=== PATIENT | male | born 1940 | race American Indian/Alaskan Native ===

== ENCOUNTER 2017-04-30 10:34 | Day surgery (SDC) | payer MEDICARE ==
--- NOTE | 2017-04-28 11:23 | Anesthesia Consultation ---
Anesthesia Consult and Med Hx Date of service: 04/28/17 - Airway Anesthetic Teeth Evaluation: Good ROM Head & Neck: Adequate Mental/Hyoid Distance: Adequate Mallampati Class: Class II Intubation Access Assessment: Probably Good - Pulmonary Exam CTA: Yes - Cardiac Exam Cardiac Exam: RRR - Pre-Operative Health Status ASA Pre-Surgery Classification: ASA3 Proposed Anesthetic Plan: General - Pulmonary Hx Smoking: No Hx Sleep Apnea: No (NICK PRE SCREEN HIGH RISK) - Cardiovascular System Hx Hypertension: Yes (X 40 YRS) Hx Heart Attack/AMI: Yes (MS X 3- LAST ONE 1994) - Central Nervous System Hx Back Pain: Yes - Endocrine Hx Non-Insulin Dependent Diabetes: No - Other Systems Hx Cancer: No
[2017-04-28 12:28] LABS: Basophils % (Auto) 1.3 % (0.0-1.8); Eosinophils % (Auto) 1.7 % (0.0-4.3); Hemoglobin 14.8 gm/dl (11.8-15.2); Mean Corpuscular HGB Conc 33 % (32-34); Mean Corpuscular Hemoglobin 30 pg (28-32); Mean Corpuscular Volume 90 fl (84-94); Platelet Count 229 K/mm3 (140-440); Red Blood Count 4.98 M/mm3 (3.65-5.03); Red Cell Distribution Width 16.1 % (13.2-15.2); White Blood Count 5.3 K/mm3 (4.5-11.0)
[2017-04-28 12:42] LABS: INR 0.96 (0.87-1.13); Partial Thromboplastin Time 28.2 Sec. (24.2-36.6)
[2017-04-28 12:58] LABS: Alanine Aminotransferase 18 units/L (7-56); Albumin 3.9 g/dL (3.9-5); Albumin/Globulin Ratio 1.3 %; Alkaline Phosphatase 54 units/L (35-129); Anion Gap 16 mmol/L; BUN/Creatinine Ratio 9; Blood Urea Nitrogen 9 mg/dL (9-20); Calcium 8.9 mg/dL (8.4-10.2); Carbon Dioxide 25 mmol/L (22-30); Glucose 98 mg/dL (75-100); Potassium 4.5 mmol/L (3.6-5.0); Sodium 140 mmol/L (137-145)
[~2017-04-30 10:34] MED LIST: NACL 0.9% 1000 ML 1,000 ML IV SCH; PEPCID PO NR
[2017-04-30] MEDS ORDERED: NACL BACTERIOSTATIC INFILTRATI ONE (10:49)
[2017-04-30] MEDS ORDERED: GARAMYCIN 120 MG in NACL 0.9% 100 ML IV SCH (12:30)
[2017-04-30] MEDS ORDERED: GARAMYCIN/NS 120MG/100ML 120 MG/100 ML BAG IV NR (13:00)
[2017-04-30] MEDS ORDERED: ANCEF/STERILE WATER 2 GM/20 ML 2 GM/20 ML SYRINGE IV NR (13:00)
[2017-04-30] MEDS ORDERED: XYLOCAINE MPF 2% ONE (13:11)
[2017-04-30] MEDS ORDERED: SUBLIMAZE ONE (13:11)
[2017-04-30] MEDS ORDERED: DIPRIVAN 10 MG/ML IV ONE (13:11)
[2017-04-30] MEDS ORDERED: WATER FOR IRRIG STERILE IR ONE (13:16)
[2017-04-30] MEDS ORDERED: ePHEDrine SULFATE ONE (13:36)
[2017-04-30] MEDS ORDERED: DECADRON ONE (13:40)
[2017-04-30] MEDS ORDERED: ZOFRAN ONE (13:40)
--- NOTE | 2017-04-30 14:03 | Post Operative Note ---
Date of procedure: 04/30/17 Pre-op diagnosis: inc psa Post-op diagnosis: same Findings: normal pus Procedure: flex cysto pus biopsies with us Anesthesia: GETA Surgeon: CHRISTOPHER MONGE Estimated blood loss: minimal Pathology: list (prostate) Specimen disposition: to lab Condition: stable Disposition: PACU
--- NOTE | 2017-04-30 14:04 | Discharge Summary ---
Short Stay Discharge Plan Activity: other (no straining ) Weight Bearing Status: Full Weight Bearing Diet: low fat, low cholesterol, low salt Special Instructions: other (inc fluids ) Follow up with: PRIMARY CARE, [Primary Care Provider] - 7 Days CHRISTOPHER MONGE MD [Staff Physician] - 7 Days
--- NOTE | 2017-04-30 16:10 | Ultrasound Report ---
ULTRASOUND GUIDANCE INTRAOPERATIVE - TRANSRECTAL: HISTORY: Prostate biopsy guidance. Elevated PSA. COMPARISON: None similar at this institution. FINDINGS: Transrectal ultrasound guidance provided for Dr. Reece for prostate biopsy. Prostate estimated at 26 cc. CONCLUSION: Prostate biopsy performed under ultrasound guidance. Thank you for the opportunity to participate in this patient's care.
[2017-04-30 17:22] VITALS: BP 116/75
--- NOTE | 2017-04-30 17:31 | Operative Report ---
PREOPERATIVE DIAGNOSIS: Elevated PSA and PCA3. POSTOPERATIVE DIAGNOSIS: Elevated PSA and PCA3, rule out prostate cancer. PROCEDURE: Flexible cystoscopy, transrectal biopsies of the prostate with ultrasound guidance. SURGEON: Laith Reece MD ANESTHESIA: General. FINDINGS: This is a gentleman with elevated PSA. All the options were given. He had a biopsy in [place] where he got septic. He wanted to be in the hospital. He was loaded up with antibiotics here. DESCRIPTION OF PROCEDURE: The patient brought to the operating room and placed on the operating table. Following induction of anesthesia, placed in lithotomy position, prepped and draped in usual sterile fashion. Flexible cystoscopy showed normal urethra, minimal bilobar hypertrophy. The transrectal ultrasound guidance, measured the prostate approximately 26 grams. There were no hypoechoic areas. Biopsies were obtained, 6 on the right, 6 on the left. The patient tolerated the procedure well. No significant complications, brought to recovery in stable condition. JOB# [id number] LIBBY/RUBEN
== END 2017-04-30 16:05 | disposition home or self-care (01) ==
LOC: OR 10:34
PROVIDERS: ATTEND Urology
DX: C61 Malignant neoplasm of prostate (principal); N41.1 Chronic prostatitis; N42.89 Other specified disorders of prostate; R97.20 Elevated prostate specific antigen [PSA]; I25.2 Old myocardial infarction; I10 Essential (primary) hypertension; E78.00 Pure hypercholesterolemia, unspecified; Z80.42 Family history of malignant neoplasm of prostate; Z79.899 Other long term (current) drug therapy; Z79.82 Long term (current) use of aspirin
CPT/HCPCS: 36415; 55700; 76998; 80053; 85025; 85610; 85730; 88305; 93005; 93010; A4217; J0690; J1100; J1580; J2405; J2704; J3010; J7030

== ENCOUNTER 2017-09-22 11:04 | Outpatient (CLI) | payer MEDICARE ==
--- NOTE | 2017-09-23 00:26 | XRay Report ---
FINAL REPORT PROCEDURE: XR SPINE LUMBOSACRAL 2-3V TECHNIQUE: Lumbar spine radiographs, including AP, lateral, and lumbosacral spot views. CPT 20539 HISTORY: LOW BACK PAIN COMPARISON: No prior studies are available for comparison. FINDINGS: Alignment: There is a mild right convex mid lumbar curvature.. Vertebral body heights/Disk spaces: There is slight endplate concavity identified in the superior endplates of the L1-L2 and L3 vertebral levels. No compression fractures are noted. There is moderate narrowing of the disc spaces at the L2-3, L3-4, L4-5 and L5-S1 levels. Moderate spur formation off the vertebral bodies is identified at all levels.. Fracture(s): No evident acute fracture. The patient has had previous surgery with what appears to represent removal of a portion of the posterior elements at the L4 and L5 vertebral levels.. Facets: Mild facet hypertrophy identified at all levels.. Bone mineralization: Mild generalized osteopenia. IMPRESSION: There is no evidence of an acute fracture dislocation. Moderate lumbar spondylosis and degenerative disc changes as described. Mild generalized osteopenia.
== END 2017-09-22 11:05 | disposition home or self-care (01) ==
LOC: SPVIMAG 11:04
PROVIDERS: ATTEND Physical Medicine & Rehabilitation
DX: M47.896 Other spondylosis, lumbar region (principal); M85.88 Other specified disorders of bone density and structure, other site; M43.8X6 Other specified deforming dorsopathies, lumbar region; Z98.890 Other specified postprocedural states
CPT/HCPCS: 72100

== ENCOUNTER 2021-03-02 06:04 | Inpatient (IN) | payer MEDICARE ==
[2021-02-28 13:29] LABS: Hemoglobin 14.8 gm/dl (11.8-15.2); Mean Corpuscular HGB Conc 34 % (32-34); Mean Corpuscular Volume 93 fl (84-94); Platelet Count 258 K/mm3 (140-440); Red Blood Count 4.73 M/mm3 (3.65-5.03); Red Cell Distribution Width 15.4 % (13.2-15.2)
[2021-02-28 13:40] LABS: INR 0.92 (0.87-1.13)
[2021-02-28 13:41] LABS: Partial Thromboplastin Time 24.7 Sec. (24.2-36.6)
[2021-02-28 13:50] LABS: BUN/Creatinine Ratio 18; Blood Urea Nitrogen 18 mg/dL (9-20); Calcium 9.3 mg/dL (8.4-10.2); Hemolysis Index 5
--- NOTE | 2021-02-28 15:27 | Anesthesia Consultation ---
Anesthesia Consult and Med Hx Date of service: 03/02/21 - Airway Anesthetic Teeth Evaluation: Dentures ROM Head & Neck: Adequate Mental/Hyoid Distance: Adequate Mallampati Class: Class II Intubation Access Assessment: Probably Good - Pulmonary Exam CTA: Yes - Cardiac Exam Cardiac Exam: RRR - Pre-Operative Health Status ASA Pre-Surgery Classification: ASA3 Proposed Anesthetic Plan: General - Pulmonary Hx Smoking: Yes (quit 1989) Hx Respiratory Symptoms: No Hx Sleep Apnea: No - Cardiovascular System Hx Hypertension: Yes Hx Coronary Artery Disease: Yes Hx Heart Attack/AMI: Yes () Hx Percutaneous Transluminal Coronary Angioplasty (PTCA): No Hx Cardia Arrhythmia: No (sinus bradycardia at baseline) Hx Pacemaker: No Hx Internal Defibrillator: No - Central Nervous System CVA: No Hx Back Pain: Yes - Endocrine Hx Renal Disease: No Hx Liver Disease: No Hx Insulin Dependent Diabetes: No Hx Non-Insulin Dependent Diabetes: No Hx Thyroid Disease: No - Hematic Hx Anemia: No - Other Systems Hx Obesity: No - Additional Comments Anesthesia Medical History Comments: No hx anesthetic complications. Consented for GA w/ pre-induction a-line. Preop cardiology eval reviewed: normal EF and negative ST recently.
[2021-03-02] MEDS ORDERED: SODIUM CHLORIDE 0.9% 1000 ML 1,000 ML IV SCH (07:00)
[2021-03-02] MEDS ORDERED: propofoL 200 MG/20 ML VIAL IV ONE (07:33)
[2021-03-02] MEDS ORDERED: VASOPRESSIN 20 UNIT/1 ML INJ ONE (07:34)
--- NOTE | 2021-03-02 07:44 | Short Stay Summary ---
Short Stay Documentation Date of service: 03/02/21 - History Principal diagnosis: Enlarging abdominal aortic aneurysm Past Medical History: CAD, cancer (Prostate), hypertension, hyperlipidemia Social history: no significant social history, smoking (Former) - Allergies and Medications Current Medications: Allergies No Known Allergies Allergy (Verified 02/27/21 16:25) Home Medications Medication Instructions Recorded Confirmed Last Taken Type Aspirin [Lo-Dose Aspirin EC] 81 mg PO DAILY 04/23/17 03/02/21 2 Days Ago History ~02/28/21 81 mg amLODIPine/ATORVASTATIN 1 tab PO DAILY 04/23/17 03/02/21 03/02/21 04:00 History [Amlodipine-Atorvast 10-10 mg] 10 mg oxyCODONE /ACETAMINOPHEN [Percocet 1 tab PO Q6HR PRN 04/23/17 03/02/21 03/02/21 04:00 History 5/325 mg] 1 tab Active Medications Sodium Chloride (Nacl 0.9% 1000 Ml) 1,000 mls @ 42 mls/hr IV DIRECT RENZO - Physical exam General appearance: no acute distress Integumentary: no rash, no growths HEENT: Atraumatic Lungs: Normal air movement Breasts: deferred Heart: Regular rate Gastrointestinal: normal Male Genitourinary: deferred Rectal Exam: deferred Neurological: Normal gait, Normal speech - Brief post op/procedure progress note Date of procedure: 03/02/21 Pre-op diagnosis: Enlarging abdominal aortic aneurysm Post-op diagnosis: same Procedure: Endovascular repair of abdominal aortic aneurysm Anesthesia: local Surgeon: ZENON AVINA Grinding Machine Operator: FRANCISCA MEJIA Estimated blood loss: minimal Pathology: none Condition: stable - Disposition Condition at discharge: Good Disposition: 02 SHORT TERM HOSPITAL Short Stay Discharge Plan Wound: keep clean and dry, per your surgeon's advice Follow up with: DIDI CARTER MD [Primary Care Provider] - 7 Days FRANCISCA MEJIA MD [Staff Physician] - 7 Days
[2021-03-02] MEDS ORDERED: MIDAZOLAM 2 MG/2 ML INJ ONE (07:59)
[2021-03-02] MEDS ORDERED: ePHEDrine SULFATE 50 MG/1 ML INJ ONE (08:07)
[2021-03-02] MEDS ORDERED: HYDROmorphone 1 MG/1 ML INJ ONE (08:07)
[2021-03-02] MEDS ORDERED: HEPARIN/NS 5000 UNIT/500ML 1,500 ML IR ONE ×2 (08:11→10:07)
[2021-03-02] MEDS ORDERED: HEPARIN 10,000 UNITS/10 ML VIAL ONE (08:11)
[2021-03-02] MEDS ORDERED: LIDOCAINE (2%) 20 MG/1 ML VIAL 20 ML MDV INFILTRATI ONE ×2 (08:12→09:39)
[2021-03-02] MEDS ORDERED: LIDOCAINE MPF (2%) 20 MG/1 ML VIAL 5 ML ONE (09:00)
--- NOTE | 2021-03-02 09:20 | Anesthesia Day of Surgery ---
Anesthesia Day of Surgery - Day of Surgery Patient Examined: Yes Patient H&P Reviewed: Yes Patient is NPO: Yes
[2021-03-02] MEDS ORDERED: ceFAZolin/Water 2 GM/20 ML 2 GM/20 ML SYRINGE IV ONE (09:22)
[2021-03-02] MEDS ORDERED: ONDANSETRON 4 MG/2 ML INJ IV PRN ×2 (10:00→11:49)
[2021-03-02] MEDS ORDERED: HYDROmorphone 1 MG/1 ML INJ IV PRN ×2 (10:00→11:49)
[2021-03-02] MEDS ORDERED: HEPARIN/NS 5000 UNIT/500ML 500 ML IR ONE (10:10)
[2021-03-02] MEDS ORDERED: NEOSTIGMINE 10MG/10 ML INJ MDV ONE (11:45)
[2021-03-02] MEDS ORDERED: ONDANSETRON 4 MG/2 ML INJ ONE (11:45)
[2021-03-02] MEDS ORDERED: GLYCOPYRROLATE 0.4 MG/2 ML INJ ONE (11:45)
[2021-03-02] MEDS ORDERED: ROCURONIUM 50 MG/5 ML INJ IV ONE (11:45)
[2021-03-02] MEDS ORDERED: oxyCODONE /ACETAMINOPHEN 5-325MG TAB PO PRN (11:49)
[2021-03-02] MEDS ORDERED: ALBUTEROL 2.5 MG/3 ML NEBU IH PRN (11:49)
[2021-03-02] MEDS ORDERED: ACETAMINOPHEN 325 MG TAB PO PRN (11:49)
--- NOTE | 2021-03-02 11:49 | History and Physical Report ---
History of Present Illness Chief complaint: I have an aneurysm History of present illness: 80 YO Male with HTN, [place], LDD, Nicotine Dependence, CAD, AAA admitted directly at the request of Dr. White. Patient found to have abdominal aortic aneurysm in need of repair. Patient taken electively to the operating room for surgical repair. Patient denies fever, chills, chest pain, palpitation, productive cough, skin rash, recent ill contact, non-smoker to [place] [id number]. No prior admission for review. All medication listed at time admission has been reconciled. Advanced care planning conducted. Past History Past Medical History: CAD, cancer (Prostate), hypertension, hyperlipidemia Social history: , smoking (Former) Family history: hypertension Medications and Allergies Allergies Allergy/AdvReac Type Severity Reaction Status Date / Time No Known Allergies Allergy Verified 02/27/21 16:25 Home Medications Medication Instructions Recorded Confirmed Last Taken Type Aspirin [Lo-Dose Aspirin EC] 81 mg PO DAILY 04/23/17 03/02/21 2 Days Ago History ~02/28/21 81 mg amLODIPine/ATORVASTATIN 1 tab PO DAILY 04/23/17 03/02/21 03/02/21 04:00 History [Amlodipine-Atorvast 10-10 mg] 10 mg oxyCODONE /ACETAMINOPHEN [Percocet 1 tab PO Q6HR PRN 04/23/17 03/02/21 03/02/21 04:00 History 5/325 mg] 1 tab Active Meds: Active Medications Clopidogrel Bisulfate (Clopidogrel 75 Mg Tab) 75 mg PO QDAY RENZO Hydromorphone HCl (Hydromorphone 1 Mg/1 Ml Inj) 0.5 mg IV Q10MIN PRN PRN Reason: Pain , Severe (7-10) Stop: 03/02/21 17:00 Sodium Chloride (Nacl 0.9% 1000 Ml) 1,000 mls @ 42 mls/hr IV DIRECT RENZO Ondansetron HCl (Ondansetron 4 Mg/2 Ml Inj) 4 mg IV ONCE PRN PRN Reason: Nausea And Vomiting Stop: 03/02/21 17:00 Review of Systems Constitutional: no weight loss, no weight gain, no fever, no chills Ears, nose, mouth and throat: no ear pain, no tinnitis, no nose pain Cardiovascular: no chest pain, no orthopnea, no palpitations, no rapid/irregular heart beat, no syncope, no lightheadedness Respiratory: no cough, no cough with sputum, no excessive sputum, no hemoptysis, no dyspnea on exertion Gastrointestinal: no abdominal pain, no vomiting, no change in bowel habits, no hematemesis Genitourinary Male: no dysuria, no urinary frequency, no nocturia Rectal: no pain Musculoskeletal: no neck pain, no shooting arm pain, no arm numbness/tingling Integumentary: no rash, no pruritis, no redness, no sores, no wounds Neurological: no head injury, no transient paralysis, no paralysis, no weakness Psychiatric: no anxiety, no change in sleep habits, no sleep disturbances, no insomnia, no hypersomnia Endocrine: no cold intolerance, no heat intolerance, no polydipsia, no polyuria, no nocturia, no flushing Hematologic/Lymphatic: no easy bruising, no lymphedema Allergic/Immunologic: no urticaria, no wheezing, no anaphylaxis, no angioedema Exam - Constitutional Vitals: Temp Pulse Resp BP Pulse Ox 98.0 F 59 L 18 139/74 99 03/02/21 07:26 03/02/21 07:26 03/02/21 07:26 03/02/21 07:26 03/02/21 07:56 General appearance: Present: no acute distress - EENT Eyes: Present: PERRL ENT: hearing intact, clear oral mucosa - Neck Neck: Present: supple, normal ROM - Respiratory Respiratory effort: normal Respiratory: bilateral: CTA - Cardiovascular Heart Sounds: Present: S1 & S2. Absent: rub, click - Extremities Extremities: pulses symmetrical, No edema Peripheral Pulses: within normal limits - Abdominal General gastrointestinal: Present: soft, non-tender, non-distended, normal bowel sounds Male genitourinary: Present: normal - Integumentary Integumentary: Present: clear, warm, dry - Musculoskeletal Musculoskeletal: gait normal, strength equal bilaterally - Psychiatric Psychiatric: appropriate mood/affect, intact judgment & insight - Neurologic Neurologic: CNII-XII intact, moves all extremities Results - Labs CBC & Chem 7: 02/28/21 06:52 02/28/21 06:52 Labs: Abnormal lab results 02/28/21 03/02/21 Range/Units 06:52 07:05 RDW 15.4 H (13.2-15.2) % Crossmatch See Detail Assessment and Plan - Patient Problems (1) Abdominal aortic aneurysm Current Visit: Yes Status: Acute Qualifiers: Presence of rupture: without rupture Qualified Code(s): I71.4 - Abdominal aortic aneurysm, without rupture Plan to address problem: Surgical intervention as per vascular surgery team, admit to ICU, supportive care, further care as per vascular surgery team. (2) Nicotine dependence Current Visit: Yes Status: Acute Qualifiers: Nicotine product type: cigarettes Substance use status: in withdrawal Qualified Code(s): F17.213 - Nicotine dependence, cigarettes, with withdrawal Plan to address problem: Smoking cessation counseling, supportive care, (3) Hypertension Current Visit: Yes Status: Acute Qualifiers: Hypertension type: primary hypertension Qualified Code(s): I10 - Essential (primary) hypertension Plan to address problem: Monitor blood pressure every shift, continue medical management (4) DVT prophylaxis Current Visit: Yes Status: Acute Plan to address problem: SCD to bilateral lower extremities while in bed (5) Advance care planning Current Visit: Yes Status: Acute Plan to address problem: Disease education conducted, care plan discussed, diagnoses discussed, prognosis discussed, patient is full code, patient knowledges understanding agreement with care plan, +30 minutes.
[2021-03-02] MEDS: CLOPIDOGREL 75 MG TAB PO SCH (12:53)
--- NOTE | 2021-03-02 14:19 | Operative Report ---
Operative Report Operative Report: Date of Procedure: 03/02/2021 Pre-operative Diagnosis: Abdominal Aortic Aneurysm without Evidence of Rupture Post-operative Diagnosis: Same Procedure(s): 1. Ultrasound-Guided Access Right Common Femoral Artery 2. Ultrasound-Guided Access Left Common Femoral Artery 3. Catheter in Aorta 4. Diagnostic Aortogram (No Previous Films for Comparison) 5. Percutaneous Endovascular Repair of Abdominal Aortic Aneurysm with: 1. Endologix AFX 22-60/13-40 Main Body 2. Endologix Ovation iX 22 x 45 mm Proximal Extension 6. Radiologic Supervision with Interpretation Surgeon: David White MD Medical Records Specialist: Ignacio Lopez MD Anesthesia: General Endotracheal Anesthesia EBL: Minimal Counts: Correct Complications: None Condition: Stable Specimen: None Indication: The patient is an 80-year-old male with a history of an abdominal aortic aneurysm that rapidly expanded over a 6-month period. Given the rapid expansion he is in need of repair of the aneurysm to prevent rupture. He was worked up and found to be a suitable candidate for endovascular repair. He was given the risk, benefits, and alternative procedures and consented to the procedure. Angiographic Findings: The diagnostic aortogram revealed an infrarenal abdominal aortic aneurysm without evidence of a rupture. The endograft was placed at the bifurcation with the proximal extension place just distal to the renal arteries. The final angiogram revealed brisk flow of contrast through the endograft with no evidence of endoleak's. Description of Procedure: The patient was brought to the Solutions Analyst and laid in supine position. After timeout was performed general endotracheal anesthesia was achieved and the patient was then prepped and draped in normal sterile fashion. Ultrasound was used to identify the right common femoral artery and confirm patency. Once patency was confirmed an 11 blade was used to make a small stab incision and then a curved hemostat was used to bluntly dissect down to the anterior surface of the right common femoral artery under ultrasound guidance. A 21-gauge micropuncture needle was used with ultrasound guidance in the right common femoral artery and a 0.018 micropuncture wire was advanced to the artery. The needle was removed and a micropuncture sheath was placed by Seldinger technique. The inner dilator and wire were removed and a 0.035 Bentson wire was advanced to the aorta. The micropuncture sheath was exchanged for a 6 Guinean sheath by Seldinger technique. A preclose technique was performed, on the right femoral arteriotomy after removing the 6 Guinean sheath, by deploying a Pro-[place] Closure Device at the 2 o'clock and 10 o'clock position in the artery. A 10 Guinean sheath was then placed by Seldinger technique. Ultrasound was then used to identify the left common femoral artery and confirm patency. An 11 blade was used to make a small stab incision and then a curved hemostat was used to bluntly dissect down to the anterior surface of the artery under ultrasound guidance. A 21-gauge micropuncture needle was used ultrasound guidance into the artery and a 0.018 micropuncture wire was advanced to the artery. After removing the needle a micropuncture sheath was placed by Seldinger technique. The inner dilator and wire were removed and a 0.035 Bentson wire was advanced into the aorta. The micropuncture sheath was then exchanged for a 6 Guinean sheath by Seldinger technique. The 6 Guinean sheath was then removed and a preclose technique was performed on the left femoral arteriotomy by placing a Pro-glide closure device at the 2 o'clock and 10 o'clock position. A 10 Guinean sheath was then placed into the artery by Seldinger technique. At this point the patient was systemically heparinized with 5000 units of heparin IV. A 7 Guinean 23 cm sheath was then advanced through the 10 cm sheath within the right common femoral artery and placed at the level of the bifurcation. A diagnostic angiogram was then performed through the 7 Guinean sheath to accurately identify the aortic bifurcation. A Kumpe catheter was advanced over the Bentson wire and the Bentson wire was exchanged for a 0.035 Lunderquist wire. The 10 Guinean sheath was then removed and the 19 Guinean AFX introducer sheath was advanced into the aorta, at the presumed level of the bifurcation. An EN Snare 9 to 15 mm snare was then advanced through the 7 mm sheath and placed just above the bifurcation and a 19 Guinean sheath. The AFX2 bifurcated device was loaded onto the Lunderquist wire and advanced up to the 19 Guinean sheath. The contralateral wire was then advanced into the 19 Guinean sheath and advanced into the aorta and was snared using the EN Snare. The contralateral wire was then pulled over the bifurcation and out through the contralateral side and through the 7 Guinean sheath. The AFX2 bifurcated device was transferred into the AFX introducer sheath and advanced under fluoroscopy until the distal limbs were above the aortic bifurcation, releasing the limbs of the graft. The entire system was then pulled down to the aortic bifurcation. The main body was then deployed by pulling on the controlled core handle. The contralateral limb was then deployed by pulling the yellow limb cover off of the wire and advancing a pigtail catheter over the contralateral wire into the tip was in contact with the wire lock. The pigtail was then held in place while pulling on the control while to release it from the wire lock. The ipsilateral limb was deployed by pinning the inner core and retracting the AFX introducer sheath. The contralateral wire was removed and discarded and a Bentson wire was advanced through the pigtail catheter and into the proximal aorta. The pigtail catheter was then removed and the 22 x 45 mm Ovation iX proximal extension was advanced into position. The pigtail catheter was advanced over the Lunderquist wire and into position. A diagnostic aortogram was performed demonstrating the level of the renal arteries. The proximal extension was then deployed after and pulling the pigtail back into distal aorta. The extension delivery sheath was removed and replaced by an 11 Guinean sheath. The pigtail catheter was advanced back into the suprarenal aorta and a final angiogram was performed that demonstrated brisk flow of contrast through the graft and no evidence of endoleak's of any form. A Bentson wire was then advanced to the pigtail and the pigtail was removed. The sheaths were removed from each respective femoral artery and the pro glides were used to close the femoral arteriotomies without evidence of hemorrhage or occlusion of the femoral arteries. The skin and soft tissue was then anesthetized with Marcaine and the skin was closed using 4-0 Monocryl in interrupted fashion. The skin was then dressed with Dermabond. The patient tolerated the procedure well. All sponge, needle, and instrument counts were correct. The patient was taken to the recovery area in stable condition.
[2021-03-02] MEDS: amLODIPine 10 MG TAB PO SCH (15:11)
--- NOTE | 2021-03-02 16:19 | Post Anesthesia Evaluation ---
- Post Anesthesia Evaluation Patient Participated: Yes Airway Patent: Yes Stable Respiratory Function: Yes Nausea/Vomiting: No Temp > 96.8F: Yes Pain Manageable: Yes Adequeate Hydration: Yes Anesthesia Complications: No Other Comments: Awake, alert, oriented. Requesting home dose percocet for chronic back pain. Surgical pain controlled. HD stable, no pressors. OK for transfer pending bed availability. A-line can be removed prior to transfer.
--- NOTE | 2021-03-03 09:10 | Discharge Summary ---
Providers - Providers Date of Admission: 03/02/21 11:49 Date of discharge: 03/03/21 Attending physician: RAFAL NARANJO MD Primary care physician: DIDI CARTER Hospitalization Condition: Good Hospital course: Patient with a history of an enlarging abdominal aortic aneurysm postop day 1 status post endovascular repair using PEVAR technique. Patient's groin access sites are clean dry and intact with no significant subcutaneous hematoma. Patient has no complaints of abdominal or leg pain. He does have baseline lower back pain for which she is chronically on OxyContin. Disposition: 01 HOME / SELF CARE / HOMELESS Final Discharge Diagnosis (Prints w/discharge instructions): Enlarging abdominal aortic aneurysm Time spent for discharge: 30 minutes Core Measure Documentation - Palliative Care Palliative Care/ Comfort Measures: Not Applicable - Core Measures Any of the following diagnoses?: none Exam - Constitutional Vitals: Temp Pulse Resp BP Pulse Ox 99.2 F 61 14 113/77 98 03/03/21 08:00 03/03/21 05:51 03/03/21 05:51 03/03/21 05:51 03/03/21 05:51 General appearance: Present: no acute distress - EENT Eyes: Present: EOM intact ENT: hearing intact - Neck Neck: Present: supple, normal ROM - Respiratory Respiratory effort: normal - Extremities Extremities: no ischemia, abnormal (Postsurgical changes to bilateral groins) - Abdominal General gastrointestinal: Present: soft, non-tender Male genitourinary: Present: deferred - Rectal Rectal Exam: deferred - Psychiatric Psychiatric: appropriate mood/affect, cooperative Plan Activity: advance as tolerated Weight Bearing Status: Weight Bear as Tolerated Diet: regular Wound: keep clean and dry, per your surgeon's advice Follow up with: FRANCISCA MEJIA MD [Staff Physician] - 7 Days DIDI CARTER MD [Primary Care Provider] - 7 Days Prescriptions: oxyCODONE /ACETAMINOPHEN [Percocet 5/325] 1 tab PO Q6HR PRN #25 tablet PRN Reason: Pain Clopidogrel [Plavix] 75 mg PO QDAY #30 tablet
[2021-03-03] MEDS ORDERED: AMLODIPINE PO SCH (10:00)
[2021-03-03] MEDS ORDERED: ATORVASTATIN PO SCH (10:00)
[2021-03-03] MEDS ORDERED: [UNRECOGNIZED DRUG - OTHER] PO SCH (10:00)
[2021-03-03] MEDS ORDERED: ASPIRIN EC 81 MG TAB PO SCH (10:00)
[2021-03-03] MEDS: CLOPIDOGREL 75 MG TAB PO SCH (10:11)
[2021-03-03] MEDS: amLODIPine 10 MG TAB PO SCH (10:13)
[2021-03-03 10:14] VITALS: BP 121/67
== END 2021-03-03 11:30 | disposition home or self-care (01) | DRG 269 ==
LOC: CATHLABREC 06:04 → IMCU 11:49
PROVIDERS: ADMIT Internal Medicine; ATTEND Internal Medicine
PROC: 04V03DZ Restriction of Abdominal Aorta with Intraluminal Device, Percutaneous Approach (ICD-10-PCS; principal; 2021-03-02)
PROC: B4101ZZ Fluoroscopy of Abdominal Aorta using Low Osmolar Contrast (ICD-10-PCS; 2021-03-02)
DX: I71.4 Abdominal aortic aneurysm, without rupture (principal); F17.213 Nicotine dependence, cigarettes, with withdrawal; Z86.79 Personal history of other diseases of the circulatory system; Z20.822 Contact with and (suspected) exposure to COVID-19; I25.10 Atherosclerotic heart disease of native coronary artery without angina pectoris; E78.5 Hyperlipidemia, unspecified; I25.2 Old myocardial infarction
CPT/HCPCS: 34705; 34709; 34713; 36415; 75625; 76937; 80048; 85027; 85610; 85730; 86850; 86900; 86901; 86920; G0378; C1760; C1769; C1874; C1894; J0690; J1170; J1644; J2250; J2405; J2704; J2710; J7030; Q9967; U0003